=== PATIENT | female | born 1940 | race Caucasian/White ===

== ENCOUNTER → 2016-10-20 | Outpatient (CLI) | payer MEDICARE ==
[~2016-10-20] MED LIST: ASPIR 8181 MG PO; CRESTOR10 MG PO; GLUCOPHAGE1000 MG PO; LOPRESSOR DPS12.5 MG PO; METOPROLOL TART25 MG PO; NORCO 5-325 TA1 EACH PO; ZESTRIL DPS5 MG PO; [UNRECOGNIZED DRUG - OTHER] PO
== END | disposition home or self-care (01) ==
LOC: RAD.S 14:10
DX: R10.12 Left upper quadrant pain (principal)

== ENCOUNTER 2016-11-08 05:25 | Inpatient (IN) | payer MEDICARE ==
[~2016-11-08] VITALS: Ht 157.5 cm; Wt 63.5 kg
[2016-11-11] MEDS ORDERED: GLUCOPHAGE1000 MG PO (20:20)
[2016-11-11] MEDS ORDERED: ZESTRIL DPS5 MG PO (20:20)
[2016-11-11] MEDS ORDERED: [UNRECOGNIZED DRUG - OTHER] PO (20:20)
[2016-11-11] MEDS ORDERED: METOPROLOL TART25 MG PO (20:21)
[2016-11-11] MEDS ORDERED: CRESTOR10 MG PO (20:21)
[2016-11-11] MEDS ORDERED: LOPRESSOR DPS12.5 MG PO (20:21)
[2016-11-11] MEDS ORDERED: ASPIR 8181 MG PO (20:21)
[2016-11-11] MEDS ORDERED: NORCO 5-325 TA1 EACH PO (20:22)
--- NOTE | 2016-12-01 11:41 | OR ---
ADMIT: 11/08/2016 RM/LOC: 632 [facility] MR#: [id number] [facility] [id number] [address] [place], [place] [address] [address] [place] [address] Operative/Delivery Room Report SEX: F AGE: 76 : 1940 Corrected: 11/09/2016 0604 nj SURGERY DATE: 11/08/2016 SURGEON: Aashish Francisco MD SLIP COVER MAKER: Kevin Tyson MD. 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 PROCEDURE: Laparoscopic sigmoid colectomy with primary re-anastomosis with laparoscopic splenic flexure mobilization. INDICATIONS: The patient is a 76-year-old with left-sided abdominal pain with known recurrent sigmoid diverticulitis with diverticular stricture and severe diverticular disease noted on a recent colonoscopy surveillance, who presents for laparoscopic sigmoid colectomy. FINDINGS: The patient was taken to the operating room. General endotracheal anesthesia was induced. The patient's abdomen was prepped and draped in normal sterile fashion. The case was begun by making a vertical infraumbilical 5 mm skin incision using a #11 blade. A retractable 5 mm port was placed within the abdomen. The abdomen was insufflated with CO2 to an intra-abdominal pressure of 15 mmHg. A camera was placed showing no bowel or vascular injury. The left lower quadrant 5 mm port, right lower quadrant 12 mm port, and a right upper quadrant 5 mm port were placed under direct vision. The case was begun by placing the patient in Trendelenburg position. We eviscerated the small bowel loops out of the pelvis easily, and then using Harmonic scalpel dissection, dissected the sigmoid colon that was very indurated, thickened, and inflamed from the left retroperitoneum using Harmonic scalpel dissection along the white line of Toldt, where we then clearly identified the left ureter and kept it free from our area of dissection. We continued this dissection well down into the pelvis until we identified about the proximal rectum where it finally appeared that the bowel had developed normal texture and softness. I scored the medial right-sided mesenteric visceroperitoneum using Harmonic scalpel. Eventually, easily identified the take-off of the inferior mesenteric artery, which we divided with an Endo-ALOK 45, 2.5 mm stapler. We continued this dissection down towards our anticipated rectal staple line that we outlined with Harmonic Scalpel and used 2 more firings along the rectosigmoid mesentery with 2 more firings of an Endo-ALOK 45, 2.5 mm stapler. I then divided the proximal rectum with one firing of an Endo-ALOK 45, 3.5 mm stapler. It did appear that we are going to move up the left colon to find some nice healthy left colon to reach down to our rectum, so we mobilized the entire left colon along the white line of Toldt using Harmonic scalpel dissection. The patient did not have a nice redundant loop of left colon on examining what might reach ADMIT: 11/08/2016 RM/LOC: 632 [facility] MR#: [id number] [address] [place] [id number] [address] [address] Operative/Delivery Room Report SEX: F AGE: 76 : 1940 to the rectum, I felt it was necessary to mobilize the splenic flexure. There was a fair amount of inflammation up in this part of the patient's colon as well making the consideration that she has had some back pain and inflammation here and may have had episodes of diverticulitis up in this juncture of her colon as well. We were eventually able to dissect out the splenic flexure laparoscopically. This was somewhat tedious as again, there was less natural tissue planes and some inflammatory changes. There was no purulence or pustulence, but this mobilization did drop our left colon into the pelvis more completely. We then grasped the distal sigmoid staple line with an atraumatic grasper and enlarged our left quadrant port site with a #10 blade. It went to about 4 cm in size, placed a wound protector within the wound and brought the specimen out through the anterior abdominal wall. We found an area in the distal left colon that we felt would be healthy enough and adequate enough for our proximal staple line and our anvil. I placed a large pursestring suture across the distal left colon, fired the stapler and divided the remainder of the left colon mesentery between clamps and 0 Vicryl ties. We placed a 29 EEA anvil into this pursestring left colon site and secured the pursestring, divided the pericolonic fatty tissue with electrocautery. I felt like we had a nice adequate, well-vascularized bowel for apposition to our rectal stump for our circular anastomosis. We replaced this back into the intra-abdominal space, closed the left lower quadrant fascia with 2 layers of running single stranded #1 PDS suture. We re-insufflated the intra-abdominal space. Irrigated and suctioned out the pelvis. Dr. Tyson went below and tried to over about 20 to 30 minutes, attempted to put dilators up through the rectum to our proximal staple line, but despite being able to get a 31 sized anvil up to the staple line, was unable to pass the circular 29 stapler up through the juncture within the mid rectum. Since we were unsuccessful removing the stapler up that high, I removed probably another 5 cm or more of the proximal rectum by first dividing the rectal mesentery with Harmonic Scalpel and dividing another 5 cm of rectum with Endo-ALOK 45, 3.5 mm stapler. I placed this segment in an EndoCatch bag and I brought it out through the right lower quadrant port site. We were then able to place our 29 EEA stapler up through our rectal staple line. We approximated the 2 ends of our staplers and fired the anastomosis with complete proximal distal rings. There appeared to be no ADMIT: 11/08/2016 RM/LOC: 632 [facility] MR#: [id number] [address] [place], [place] [id number] [address] [place] [address] Operative/Delivery Room Report SEX: F AGE: 76 : 1940 tension at all on this anastomosis. There was a good blood supply. We irrigated and suctioned out the pelvis, placed some fresh saline in the pelvis, put a proctoscope within the anus and insufflated some air, and there was no evidence of air bubbling or leakage. There was no further intraabdominal pathology or complications noted. I injected 0.5% Marcaine subdermally and subfascially. Closed the right lower quadrant fascial incision with 2 separate interrupted [id number] 0 Polysorb suture passers. Removed all of our ports and closed the skin sites with interrupted skin pura. The wounds were cleaned, dried, and dressed. The patient tolerated the procedure without difficulty. She was extubated with recovery room in good condition. Aashish Francisco MD/ stephen JOB #: [id number] CC: Aashish Francisco, Attending Physician Jabier Posadas, Family Physician Corrected: 11/09/2016 0604 jessie
--- NOTE | 2016-12-01 11:48 | DS ---
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 DISMISSAL DIAGNOSES: 1. Chronic and acute diverticulitis with diverticular stricture. 2. Previous VT (myocardial infarction). 3. Hyperlipidemia. 4. Type 2 diabetes. 5. Nephrolithiasis. 6. Previous colonoscopy. 7. Previous stent placement. 8. Cataract surgery. 9. Tonsillectomy. 10.CABG (coronary artery bypass graft). 11.Hysterectomy. 12.Tubal ligation. 13.Carotid endarterectomy. PROCEDURES: Laparoscopic sigmoid colectomy with primary re-anastomosis with laparoscopic splenic flexure mobilization. HOSPITAL COURSE: The patient was an inpatient admit with routine med surg orders. After surgery, the patient transferred to the floor without any complications. She was started on clears and given a morphine LABORATORY ASSOCIATE for pain control. She was also started on IV antibiotic therapy. Overall, the patient recovered well while in the hospital. A Garcia that was placed intraoperatively was pulled on postop day number one. Her pain was controlled so she was weaned off her IV morphine LABORATORY ASSOCIATE and was tolerating oral pain pills. We tried advancing her diet postop day one; however, she became very nauseous and her abdomen got distended, so we took her back to clears and advanced her diet slowly. Eventually, she was able to get some bowel function and her distention went away on its own. Vitals remained stable and her lab work normalized. She continued to recover well and was able to discharge to home on 11/11/2016. DISCHARGE INSTRUCTIONS: 1. Okay to shower. ADMIT: 11/08/2016 RM/LOC: 632 [facility] MR#: [id number] [facility] [address] [address] [address] [id number] Discharge Summary SEX: F AGE: 76 : 1940 2. No lifting greater than 20 pounds for 4 weeks. 3. Follow up with Dr. Francisco on October 22. DISCHARGE MEDICATION LIST: 1. Metformin 1000 mg b.i.d. 2. Glipizide 10 mg b.i.d. 3. Lisinopril 5 mg daily. 4. Metoprolol tartrate 25 mg b.i.d. 5. Metoprolol tartrate 12.5 mg daily p.r.n. for palpitations. 6. Aspirin 81 mg daily. 7. Rosuvastatin 10 mg in the evening. 8. Lortab 1-2 q.4-6 hours p.r.n. JEANETH Azar / Aashish Francisco MD / njv JOB #: [id number] CC: Aashsih Francisco MD, Attending Physician Jabier Posadas MD, Family Physician
== END 2016-11-11 11:18 | disposition home or self-care (01) | DRG 331 ==
LOC: WOR 05:25 → 6PED 05:25
PROVIDERS: ADMIT Surgery
PROC: 0DTN4ZZ Resection of Sigmoid Colon, Percutaneous Endoscopic Approach (ICD-10-PCS; principal; 2016-11-08)
DX: K57.32 Diverticulitis of large intestine without perforation or abscess without bleeding (principal); E11.9 Type 2 diabetes mellitus without complications; I10 Essential (primary) hypertension; I25.2 Old myocardial infarction; E78.5 Hyperlipidemia, unspecified; M19.90 Unspecified osteoarthritis, unspecified site; I25.10 Atherosclerotic heart disease of native coronary artery without angina pectoris; K59.00 Constipation, unspecified; Z79.82 Long term (current) use of aspirin; Z79.84 Long term (current) use of oral hypoglycemic drugs; Z95.1 Presence of aortocoronary bypass graft; Z95.5 Presence of coronary angioplasty implant and graft